=== PATIENT | female | born 1970 | race Caucasian/White ===

== ENCOUNTER 2022-06-27 18:20 | Emergency (ER) | payer OTHER ==
[~2022-06-27] VITALS: Ht 165.1 cm; Wt 70.3 kg
[2022-06-27] MEDS ORDERED: SYNTHROID150 MCG PO (18:47)
[2022-06-27] MEDS ORDERED: PREMPRO 0.625-1 EAC1 PO (18:48)
== END 2022-06-27 22:42 | disposition home or self-care (01) ==
LOC: ER 18:20
DX: N39.0 Urinary tract infection, site not specified (principal); N20.0 Calculus of kidney; N28.1 Cyst of kidney, acquired

== ENCOUNTER 2022-07-01 15:46 | Emergency (ER) | payer OTHER ==
[~2022-07-01] VITALS: Ht 165.1 cm; Wt 70.3 kg
[~2022-07-01 15:46] MED LIST: PREMPRO 0.625-1 EAC1 PO; SYNTHROID150 MCG PO
== END 2022-07-01 20:24 | disposition home or self-care (01) ==
LOC: ER 15:46
DX: R10.2 Pelvic and perineal pain (principal); M54.9 Dorsalgia, unspecified; N28.1 Cyst of kidney, acquired